=== PATIENT | male | born 1990 | race Two or more races ===

== ENCOUNTER 2016-11-07 20:02 | Emergency (ER) | payer OTHER ==
[~2016-11-07] VITALS: Ht 167.6 cm; Wt 71.8 kg
[2016-11-07 20:12] VITALS: BP 123/80
== END 2016-11-07 21:00 | disposition home or self-care (01) ==
LOC: ED 20:46
DX: J01.90 Acute sinusitis, unspecified (principal); J00 Acute nasopharyngitis [common cold]; J30.9 Allergic rhinitis, unspecified; J34.89 Other specified disorders of nose and nasal sinuses
CPT/HCPCS: 99283

== ENCOUNTER → 2016-11-15 | Outpatient (CLI) | payer OTHER | END | disposition home or self-care (01) | LOC: CFH 15:02 | PROVIDERS: ATTEND Physician Assistant | DX: R22.1 Localized swelling, mass and lump, neck (principal) | CPT/HCPCS: 76536 ==

== ENCOUNTER 2016-12-25 21:07 | Emergency (ER) | payer OTHER ==
[~2016-12-25] VITALS: Ht 167.6 cm; Wt 70.9 kg
[2016-12-25 21:09] VITALS: BP 118/75
== END 2016-12-25 21:55 | disposition home or self-care (01) ==
LOC: ED 21:30
DX: H00.012 Hordeolum externum right lower eyelid (principal); F17.200 Nicotine dependence, unspecified, uncomplicated
CPT/HCPCS: 99283

== ENCOUNTER 2017-02-14 12:14 | Emergency (ER) | payer OTHER ==
[~2017-02-14] VITALS: Ht 167.6 cm; Wt 71.7 kg
[2017-02-14 12:50] VITALS: BP 114/72
== END 2017-02-14 14:27 | disposition home or self-care (01) ==
LOC: ED 14:15
DX: S93.402A Sprain of unspecified ligament of left ankle, initial encounter (principal); Z88.0 Allergy status to penicillin; X58.XXXA Exposure to other specified factors, initial encounter; Y93.66 Activity, soccer; Y92.322 Soccer field as the place of occurrence of the external cause; Y99.8 Other external cause status
CPT/HCPCS: 29515

== ENCOUNTER 2017-04-07 11:41 | Emergency (ER) | payer OTHER ==
[~2017-04-07] VITALS: Ht 167.6 cm; Wt 71.6 kg
[2017-04-07 11:42] VITALS: BP 103/67
[2017-04-07] MEDS ORDERED: CEFTRIAXONE 1,000 MG IM ONE (12:30)
[2017-04-07] MEDS ORDERED: CEFTRIAXONE 1,000 MG ONE (12:31)
== END 2017-04-07 12:50 | disposition home or self-care (01) ==
LOC: ED 12:44
DX: L03.116 Cellulitis of left lower limb (principal); Z88.0 Allergy status to penicillin
CPT/HCPCS: 96372; 99283; J0696